=== PATIENT | female | born 1975 | race African-American/Black ===

== ENCOUNTER 2017-03-02 10:34 | Emergency (ER) | payer OTHER ==
[~2017-03-02] VITALS: Ht 175.3 cm; Wt 70.8 kg
[~2017-03-02 10:34] MED LIST: ACTICIN 5% CREA60 G1 TOP; BLOOD PRESSURE MED; HYDROCHLOROTHIA25 M1 PO; HYDROCODONE-ACE15 ML PO; MOTION RELIEF25 MG PO; NAPROXEN DELAY500 M1 PO
[2017-03-02 10:36] VITALS: BP 147/105
[2017-03-02] MEDS ORDERED: PREDNISONE 20 M20 MG PO (10:47)
[2017-03-02] MEDS ORDERED: MAGIC MOUTHWASH SWISH&SPIT (10:47)
== END 2017-03-02 11:45 | disposition home or self-care (01) ==
LOC: ER 10:34
DX: J02.0 Streptococcal pharyngitis (principal); I10 Essential (primary) hypertension

== ENCOUNTER 2018-07-05 13:48 | Emergency (ER) | payer BC ==
[~2018-07-05] VITALS: Ht 175.3 cm; Wt 77.6 kg
[~2018-07-05 13:48] MED LIST changes: +MAGIC MOUTHWASH SWISH&SPIT; +PREDNISONE 20 M20 MG PO
[2018-07-05] MEDS ORDERED: MAXZIDE-25 MG1 EACH PO (14:45)
[2018-07-05] MEDS ORDERED: TRIAMTERENE-HC1 EAC2 PO (16:00)
[2018-07-05 16:07] VITALS: BP 165/98
== END 2018-07-05 16:20 | disposition home or self-care (01) ==
LOC: ER 13:48
DX: I10 Essential (primary) hypertension (principal)

== ENCOUNTER 2018-07-11 16:41 | Emergency (ER) | payer BC ==
[~2018-07-11] VITALS: Ht 175.3 cm; Wt 77.1 kg
--- NOTE | ~2018-07-11 | EKG ---
[place] [address] [facility] [facility] [employer] [place] [address] ELECTROCARDIOGRAM REPORT Name: RICCARDO PIMENTEL Room #: [facility]#: [id number] Admission: 07/11/18 Attend Phys: Discharge: 07/11/18 Date of : 77 Report #: [id number] THIS REPORT FOR: //name// [facility] ED Test Date: 2018-07-11 Test Time: 16:59:22 Pat Name: RICCARDO PIMENTEL Department: Room: Gender: F Outside Sales Representative: RADHA : 1975 Requested By: Estella Lu Order Number: [id number] MD: Joni Shah Measurements Intervals [place] Rate: 87 P: 66 DE: 157 QRS: 16 QRSD: 79 T: -25 QT: 368 QTc: 443 Interpretive Statements Sinus rhythm Nonspecific ST and T wave abnormality Compared to ECG 11/15/2012 14:09:56 ST and T wave abnormality is new Electronically Signed On 07-12-2018 9:00:40 CDT by Joni Shah [email or web address] <ELECTRONICALLY SIGNED> By: Joni Shah MD, [facility] 07/12/18 0900 58 Joni Shah MD, FAC /EPI
[~2018-07-11 16:41] MED LIST changes: +MAXZIDE-25 MG1 EACH PO; +TRIAMTERENE-HC1 EAC2 PO
[2018-07-11 17:41] LABS: ABSOLUTE NEUTROPHILS 7.3 thou/uL (1.4-8.2); BASOPHILS 0.8 % (0.0-2.0); EOSINOPHILS 1.5 % (0.0-3.0); HEMATOCRIT 43.1 % (37.0-47.0); HEMOGLOBIN 14.8 gm/dL (12.0-15.0); LYMPHOCYTES 24.5 % (24.0-44.0); MCH 29.9 pg (26.0-34.0); MCHC 34.3 g/dL (28.0-37.0); MCV 87.2 fL (80.0-100.0); MONOCYTES 6.5 % (1.0-8.0); PLATELET COUNT 353 thou/uL (150-400); POLYS 66.7 % (36.0-66.0); RBC 4.95 mil/uL (4.20-5.00); RDW 13.4 % (10.5-14.5); WBC 10.9 thou/uL (4.0-11.0)
[2018-07-11 17:44] LABS: CALCIUM 9.8 mg/dL (8.5-10.1); CREATININE 1.2 mg/dL (0.6-1.0)
[2018-07-11] MEDS ORDERED: MOBIC15 MG PO (18:56)
[2018-07-11 19:01] VITALS: BP 146/102
== END 2018-07-11 19:01 | disposition home or self-care (01) ==
LOC: ER 16:41
PROVIDERS: Emergency Medicine
DX: I10 Essential (primary) hypertension (principal); R09.81 Nasal congestion